=== PATIENT | female | born 1995 | race African-American/Black ===

== ENCOUNTER 2018-04-03 16:24 | Emergency (ER) | payer BC ==
[2018-04-03 16:45] VITALS: BP 108/69
--- NOTE | 2018-04-03 17:05 | ED ---
Throat Pain/Nasal Congestion - HPI Summary HPI Summary: 22 yr old female with the complaint of sore throat, slight cough, runny nose. Onset few days ago. No Drooling, no stridor. Mild hoarseness. No other complaints. - History of Current Complaint Chief Complaint: UCRespiratory Time Seen by Provider: 04/03/18 16:51 - Allergies/Home Medications Allergies/Adverse Reactions: Allergies Allergy/AdvReac Type Severity Reaction Status Date / Time No Known Allergies Allergy Verified 04/03/18 16:45 Home Medications: Home Medications Topiramate TAB(*) [Topamax 25 MG tab] 30 mg PO BID 04/03/18 [History Confirmed 04/03/18] PMH/Surg Hx/FS Hx/Imm Hx Infectious Disease History: No Infectious Disease History: Denies: Traveled Outside the [place] in Last 30 Days - Family History Known Family History: Positive: None - Social History Occupation: Student Alcohol Use: Occasionally Substance Use Type: Reports: None Smoking Status (MU): Never Smoked Tobacco Review of Systems Constitutional: Negative Positive: Sore Throat, Nasal Discharge Positive: Cough All Other Systems Reviewed And Are Negative: Yes Physical Exam Triage Information Reviewed: Yes Vital Signs On Initial Exam: Initial Vitals Temp Pulse Resp BP Pulse Ox 97.7 F 82 16 108/69 99 04/03/18 16:40 04/03/18 16:40 04/03/18 16:40 04/03/18 16:40 04/03/18 16:40 Vital Signs Reviewed: Yes Appearance: Positive: Well-Appearing, No Pain Distress Skin: Positive: Warm, Skin Color Reflects Adequate Perfusion Head/Face: Positive: Normal Head/Face Inspection Eyes: Positive: EOMI ENT: Positive: Pharyngeal erythema, Nasal congestion, Nasal drainage, TMs normal Neck: Positive: Nontender Respiratory/Lung Sounds: Positive: Clear to Auscultation, Breath Sounds Present Cardiovascular: Positive: RRR. Negative: Murmur Abdomen Description: Positive: Nontender Musculoskeletal: Positive: Strength/ROM Intact Neurological: Positive: Sensory/Motor Intact, Alert, Oriented to Person Place, Time, CN Intact II-III Psychiatric: Positive: Normal - Weinert Coma Scale Best Eye Response: 4 - Spontaneous Best Motor Response: 6 - Obeys Commands Best Verbal Response: 5 - Oriented Coma Scale Total: 15 Diagnostics - Vital Signs Vital Signs Temp Pulse Resp BP Pulse Ox 04/03/18 16:40 97.7 F 82 16 108/69 99 - Laboratory Lab Results: Lab Results 04/03/18 Range/Units 16:51 Group A Strep Rapid Negative (Negative) Lab Statement: Any lab studies that have been ordered have been reviewed, and results considered in the medical decision making process. EENT Course/Dx - Course Course Of Treatment: 22 yr old with URI. DC home. - Diagnoses Provider Diagnoses: Upper respiratory infection Discharge - Sign-Out/Discharge Documenting (check all that apply): Patient Departure All imaging exams completed and their final reports reviewed: No Studies - Discharge Plan Condition: Good Disposition: HOME Patient Education Materials: Upper Respiratory Infection (ED) Forms: *School Release Referrals: No Primary Care Phys,NOPCP [Primary Care Provider] - [facility] [Outside] - 2 Days - Billing Disposition and Condition Condition: GOOD Disposition: Home
== END 2018-04-03 17:09 | disposition home or self-care (01) ==
LOC: UCCORT 16:24
DX: J06.9 Acute upper respiratory infection, unspecified (principal)
CPT/HCPCS: 87651; 99201; G0463

== ENCOUNTER 2018-07-15 15:49 | Emergency (ER) | payer BC ==
--- NOTE | 2018-07-15 17:40 | UC ---
UC General HPI - HPI Summary HPI Summary: PT IS C/O "A LONG PERIOD" X 14 DAYS. BEGAN ON 07/02/18 WITH LIGHT BLEEDING THAT IS NOW HEAVY PLUS HAS SOME CRAMPING. USING ABOUT 7 TAMPONS DAILY. + SEXUALLY ACTIVE. NO SOB OR SYNCOPE BUT SOMETIMES FEELS DIZZY. DENIES FEVER, DYSURIA, VAGINAL DISCHARGE AND RISK/CONCERN FOR STD. STATES ON BCP'S AND USES CONDOMS ON OCCASION. - History of Current Complaint Chief Complaint: UCGU Stated Complaint: PERSONAL Time Seen by Provider: 07/15/18 17:09 Hx Obtained From: Patient Hx Last Menstrual Period: 07/02/18 Timing: Constant Pain Intensity: 7 Aggravating: NOTHING Alleviating: NOTHING Associated Signs & Symptoms: Positive: Abdominal Pain - "CRAMPING". Negative: Fever - Allergy/Home Medications Allergies/Adverse Reactions: Allergies Allergy/AdvReac Type Severity Reaction Status Date / Time No Known Allergies Allergy Verified 07/15/18 17:11 Home Medications: Home Medications O C 1 tab PO QPM 07/15/18 [History Confirmed 07/15/18] PMH/Surg Hx/FS Hx/Imm Hx Neurological History: Migraine - Surgical History Surgical History: None - Family History Known Family History: Positive: None - Social History Occupation: Student Alcohol Use: Occasionally Substance Use Type: None Smoking Status (MU): Never Smoked Tobacco - Immunization History Vaccination Up to Date: Yes Review of Systems All Other Systems Reviewed And Are Negative: Yes Constitutional: Positive: Negative Skin: Positive: Negative Eyes: Positive: Negative ENT: Positive: Negative Respiratory: Positive: Negative Cardiovascular: Positive: Negative Gastrointestinal: Positive: Negative Genitourinary: Positive: Abnormal Bleeding Motor: Positive: Negative Neurovascular: Positive: Negative Musculoskeletal: Positive: Negative Neurological: Positive: Negative Psychological: Positive: Negative Is Patient Immunocompromised?: No Physical Exam Triage Information Reviewed: Yes Appearance: Well-Appearing Vital Signs: Initial Vital Signs Temp 99.1 F 07/15/18 17:13 Pulse 101 07/15/18 17:13 Resp 20 07/15/18 17:13 BP 123/83 07/15/18 17:13 Pulse Ox 100 07/15/18 17:13 Vital Signs Reviewed: Yes Eyes: Positive: Conjunctiva Clear ENT: Positive: Pharynx normal, TMs normal. Negative: Nasal congestion, Nasal drainage Neck: Positive: Supple, Nontender Respiratory: Positive: Lungs clear, Normal breath sounds Cardiovascular: Positive: RRR, No Murmur Abdomen Description: Positive: Nontender, No Organomegaly, Soft. Negative: Distended, Guarding Bowel Sounds: Positive: Present Pelvic Exam: Positive: Other - External exam normal. Small amount of dark blood in vault and scant bleeding from os. No vaginal/cervical lesions. No CMT. No tenderness of masses on bimanual exam. Cultures obtained. Musculoskeletal: Positive: ROM Intact Neurological: Positive: Alert Psychological: Positive: Age Appropriate Behavior Skin Exam: Normal Diagnostics - Laboratory Diagnostic Studies Completed/Ordered: urine hcg=neg. pelvic cultures pending. No orthostatic changes(in nurse notes). Course/Dx - Course Course Of Treatment: no orthostatic changes or findings on exam to suggest critical anemia. pt states already taking a BCP. will add motrin. pt advised go to ER for worsening to which she agrees. close f/u advised, pt refer to her [facility] but states she is going to call her core shaper at home for her advise. - Diagnoses Provider Diagnosis: Vaginal bleeding Discharge - Sign-Out/Discharge Documenting (check all that apply): Patient Departure All imaging exams completed and their final reports reviewed: No Studies - Discharge Plan Condition: Stable Disposition: HOME Prescriptions: Ibuprofen TAB* [Motrin TAB* 800 MG] 800 mg PO TID #15 tab Patient Education Materials: Dysfunctional Uterine Bleeding (ED) Referrals: GAYLE ALSTON [, APPLICATION, OTHER] - 2 Days Additional Instructions: GO TO ER FOR ANY WORSENING - Billing Disposition and Condition Condition: STABLE Disposition: Home
[2018-07-15 18:22] VITALS: BP 108/75
[2018-07-17 13:52] LABS: Trichomonas vaginalis Result Negative (Negative)
[2018-07-17 13:57] LABS: Neisseria gonorrhoeae (GC) RNA Negative (Negative)
== END 2018-07-15 18:58 | disposition home or self-care (01) ==
LOC: UCCORT 15:49
DX: N93.9 Abnormal uterine and vaginal bleeding, unspecified (principal); R10.9 Unspecified abdominal pain
CPT/HCPCS: 84702; 87480; 87491; 87510; 87591; 87661; 99212; G0463

== ENCOUNTER 2018-08-15 11:02 | Emergency (ER) | payer BC ==
[2018-08-15 12:47] VITALS: BP 99/53
--- NOTE | 2018-08-15 13:43 | UC ---
General HPI - HPI Summary HPI Summary: pt has hx of seizures and is on Topamax. Tuesday08/11/18 while awaiting to go into a restaurant, pt had what she describes as 4 back to back seizures in 10 minutes with no lucid intervals. pt states "I face planted" injuring her inner lower lip and loosening her L upper central tooth. she was seen at [facility], had no imaging and given 1 day off of class. she was dx with a concussion. she returns for an ongoing pain in the back of her head, dizziness and episodes of "tunnel vision. pt spoke to her neurologist at home and they increased her Topamax from 100mg BID to 150mg BID. She has a f/u appt with them in 2 days. pt is requesting a note to excuse her from class the rest of this week. pt denies any associated illness, alcohol/drug use and changes in her routine. her friend will be driving her home in a car pool. - History of Current Complaint Chief Complaint: UCGeneralIllness Stated Complaint: DIAG CONCUSSION AT [facility] NDS NOTE FOR SCHOOL Time Seen by Provider: 08/15/18 13:36 Hx Obtained From: Patient Hx Last Menstrual Period: 08/06/18 Pain Intensity: 8 Associated Signs & Symptoms: Positive: Dizziness, Headache - Allergy/Home Medications Allergies/Adverse Reactions: Allergies Allergy/AdvReac Type Severity Reaction Status Date / Time No Known Allergies Allergy Verified 08/15/18 12:37 Home Medications: Home Medications Acetaminophen TAB* [Tylenol TAB*] 650 mg PO Q4H PRN 08/15/18 [History Confirmed 08/15/18] Bcp 1 tab PO DAILY 08/15/18 [History Confirmed 08/15/18] PMH/Surg Hx/FS Hx/Imm Hx Neurological History: Seizures - Surgical History Surgical History: None - Family History Known Family History: Positive: None - Social History Occupation: Student Alcohol Use: Occasionally Substance Use Type: None Smoking Status (MU): Never Smoked Tobacco - Immunization History Vaccination Up to Date: Yes Review of Systems All Other Systems Reviewed And Are Negative: Yes Neurological: Positive: Headache, Other - dizzy, tunnel vision Is Patient Immunocompromised?: No Physical Exam Triage Information Reviewed: Yes Appearance: Well-Appearing Vital Signs: Initial Vital Signs Temp 97.4 F 08/15/18 12:41 Pulse 58 08/15/18 12:41 Resp 20 08/15/18 12:41 BP 99/53 08/15/18 12:41 Pulse Ox 100 08/15/18 12:41 Vital Signs Reviewed: Yes Eyes: Positive: Conjunctiva Clear, Other: - PERRL, EOMI ENT: Positive: Pharynx normal, TMs normal, Other - Healing cuts inside lower lip. no malocclusion. no fx teeth.. Negative: Nasal congestion, Nasal drainage Neck: Positive: Supple, Nontender, No Lymphadenopathy, Other: - c-spine non tender. Respiratory: Positive: Lungs clear, Normal breath sounds Cardiovascular: Positive: RRR, No Murmur Abdomen Description: Positive: Nontender, No Organomegaly, Soft Bowel Sounds: Positive: Present Musculoskeletal: Positive: ROM Intact, Other: - No cranial instability or tenderness. Neurological: Positive: Other: - A&O x3. CN 2-12 grossly intact. 5/5 strength, 2 + reflexes and sensation intactx4. Negative rhomberg/pronator drifts. Steady gait. Psychological: Positive: Age Appropriate Behavior Skin Exam: Normal Diagnostics - Radiology No standard instances Radiology Interpretation Completed By: Radiologist - CT BRAIN=NO ACUTE INTRACRANIAL PATHOLOGY. Course/Dx - Course Course Of Treatment: Hx and PE d/w Dr Briseno. We agree CT brain indicated. - Differential Dx - Multi-Symptom Differential Diagnoses: Other - NO ACUTE INTRACRANIAL PATHOLOGY ON CT - Diagnoses Provider Diagnosis: Post concussion syndrome Discharge - Sign-Out/Discharge Documenting (check all that apply): Patient Departure All imaging exams completed and their final reports reviewed: Yes - Discharge Plan Condition: Stable Disposition: HOME Patient Education Materials: Post Concussion Syndrome (ED) Forms: *School Release Additional Instructions: FOLLOW UP WITH YOUR NEUROLOGIST AT HOME SCHEDULED IN 2 DAYS. GO TO ER FOR ANY WORSENING. - Billing Disposition and Condition Condition: STABLE Disposition: Home
== END 2018-08-15 14:41 | disposition home or self-care (01) ==
LOC: UCCORT 11:02
DX: F07.81 Postconcussional syndrome (principal); R56.9 Unspecified convulsions; S01.511D Laceration without foreign body of lip, subsequent encounter; Z79.899 Other long term (current) drug therapy; X58.XXXD Exposure to other specified factors, subsequent encounter
CPT/HCPCS: 70450; 99211; G0463

== ENCOUNTER 2019-04-11 15:12 | Emergency (ER) | payer BC, OTHER ==
[2019-04-11 15:41] VITALS: BP 79/52
--- NOTE | 2019-04-11 16:03 | UC ---
Respiratory Complaint HPI - HPI Summary HPI Summary: 23 yo with 3 week history of cough, episodic fevers, initially up to 102, now lower. Off and on shortness of breath, cannot sleep, feels unwell and fatigued. Off and on headaches in the right anabaptist. Nauseated by no vomiting. No past hx of asthma or pneumonia, no smoke exposure. - History of Current Complaint Chief Complaint: UCRespiratory Stated Complaint: COUGH, FEVER, HEADACHE, NAUSEA Time Seen by Provider: 04/11/19 15:34 Hx Obtained From: Patient Hx Last Menstrual Period: 03/06/19 Onset/Duration: Gradual Onset, Lasting Weeks - 3 Timing: Constant Severity Initially: Moderate Severity Currently: Moderate Pain Intensity: 6 Character: Cough: Productive - yellow sputum. Aggravating Factors: Exertion, Recumbent Position Alleviating Factors: OTC Meds - not much help, Upright Position Associated Signs And Symptoms: Positive: Dyspnea, Fever, Nasal Congestion - Risk Factors Pulmonary Embolism Risk Factors: Negative Cardiac Risk Factors: Negative Pseudomonas Risk Factors: Negative Tuberculosis Risk Factors: Negative - Allergies/Home Medications Allergies/Adverse Reactions: Allergies Allergy/AdvReac Type Severity Reaction Status Date / Time No Known Allergies Allergy Verified 04/11/19 15:42 PMH/Surg Hx/FS Hx/Imm Hx Previously Healthy: Yes Neurological History: Seizures - Surgical History Surgical History: None - Family History Known Family History: Positive: None, Non-Contributory - Social History Occupation: Student Lives: Dormitory/Roommates Alcohol Use: Occasionally Substance Use Type: None Smoking Status (MU): Never Smoked Tobacco - Immunization History Vaccination Up to Date: Yes Review of Systems All Other Systems Reviewed And Are Negative: Yes Constitutional: Positive: Fever, Fatigue Skin: Positive: Negative Respiratory: Positive: Shortness Of Breath, Cough Cardiovascular: Negative: Palpitations, Chest Pain Gastrointestinal: Positive: Nausea. Negative: Abdominal Pain, Vomiting, Diarrhea Genitourinary: Positive: Negative Motor: Positive: Negative Neurovascular: Positive: Negative Musculoskeletal: Positive: Negative Neurological: Positive: Negative, Other - last seizure was in November, provoked by heat. Psychological: Positive: Negative Is Patient Immunocompromised?: No Physical Exam Triage Information Reviewed: Yes Appearance: Ill-Appearing, Thin Vital Signs: Initial Vital Signs Temp 99.0 F 04/11/19 15:35 Pulse 79 04/11/19 15:35 Resp 16 11/06/19 15:35 BP 79/52 04/11/19 15:35 Pulse Ox 100 04/11/19 15:35 Eyes: Positive: Conjunctiva Clear ENT: Positive: Pharyngeal erythema. Negative: Tonsillar swelling, Tonsillar exudate Neck: Positive: Supple, Nontender, Enlarged Nodes @ - shotty anterior and posterior cervical nodes. Respiratory: Positive: Rhonchi - coarse breath sounds upper and lower lung groves. Cardiovascular: Positive: RRR, No Murmur Musculoskeletal Exam: Normal Musculoskeletal: Positive: Strength Intact Neurological: Positive: Alert Psychological Exam: Normal Skin Exam: Normal Respiratory Course/Dx - Course Course Of Treatment: azithromycin for treatment of persistent bronchial symptoms. - Differential Dx/Diagnosis Differential Diagnosis/HQI/PQRI: Bronchitis, Lower Resp Infection, Sinusitis Provider Diagnosis: Bronchitis Discharge ED - Sign-Out/Discharge Documenting (check all that apply): Patient Departure All imaging exams completed and their final reports reviewed: No Studies - Discharge Plan Condition: Stable Disposition: HOME Prescriptions: Azithromyxin EDUARDO (NF) [Z-Eduardo (Zithromax) 250 mg tabs #6] 2 tab PO .TODAY, THEN 1 DAILY #6 tab Patient Education Materials: Acute Bronchitis (ED) Forms: *School Release Referrals: No Primary Care Phys,NOPCP [Primary Care Provider] - Additional Instructions: Begin azithromycin for treatment of bronchitis. You might try use of Zarbees lozenges at night to decrease cough and improve sleep. Ensure continued high intake of fluids and keeping up a healthy diet. - Billing Disposition and Condition Condition: STABLE Disposition: Home
== END 2019-04-11 16:30 | disposition home or self-care (01) ==
LOC: UCCORT 15:12
DX: J40 Bronchitis, not specified as acute or chronic (principal); R11.0 Nausea; R09.81 Nasal congestion
CPT/HCPCS: 99212; G0463